=== PATIENT | male | born 1940 | race Caucasian/White ===

== ENCOUNTER → 2017-11-28 | Outpatient (CLI) | payer OTHER | END | disposition home or self-care (01) | LOC: LAB 12:39 | DX: I10 Essential (primary) hypertension (principal); D50.0 Iron deficiency anemia secondary to blood loss (chronic); N39.0 Urinary tract infection, site not specified; E03.8 Other specified hypothyroidism; E55.9 Vitamin D deficiency, unspecified ==

== ENCOUNTER 2017-12-19 11:07 | Outpatient (CLI) | payer OTHER | END 2017-12-19 11:08 | disposition home or self-care (01) | LOC: LAB 11:07 | DX: N18.3 Chronic kidney disease, stage 3 (moderate) (principal); E11.21 Type 2 diabetes mellitus with diabetic nephropathy; D63.1 Anemia in chronic kidney disease; N30.00 Acute cystitis without hematuria; E78.4 Other hyperlipidemia; E03.8 Other specified hypothyroidism ==

== ENCOUNTER 2018-02-27 12:11 | Outpatient (CLI) | payer OTHER | END 2018-02-27 12:24 | disposition home or self-care (01) | LOC: LAB 12:11 | DX: D50.0 Iron deficiency anemia secondary to blood loss (chronic) (principal); N39.0 Urinary tract infection, site not specified; I10 Essential (primary) hypertension; I12.9 Hypertensive chronic kidney disease with stage 1 through stage 4 chronic kidney disease, or unspecified chronic kidney disease; E78.2 Mixed hyperlipidemia; E03.8 Other specified hypothyroidism ==

== ENCOUNTER → 2018-03-13 | Outpatient (CLI) | payer OTHER | END | disposition home or self-care (01) | LOC: LAB 11:38 | DX: N18.3 Chronic kidney disease, stage 3 (moderate) (principal); E11.21 Type 2 diabetes mellitus with diabetic nephropathy; D63.1 Anemia in chronic kidney disease; N30.00 Acute cystitis without hematuria; E78.5 Hyperlipidemia, unspecified; E03.8 Other specified hypothyroidism ==

== ENCOUNTER 2018-04-18 11:16 | Outpatient (CLI) | payer OTHER | END 2018-04-18 11:20 | disposition home or self-care (01) | LOC: LAB 11:16 | DX: N18.3 Chronic kidney disease, stage 3 (moderate) (principal); E11.21 Type 2 diabetes mellitus with diabetic nephropathy; D63.1 Anemia in chronic kidney disease; N30.00 Acute cystitis without hematuria; E78.4 Other hyperlipidemia; E03.8 Other specified hypothyroidism ==

== ENCOUNTER 2018-06-20 11:37 | Outpatient (CLI) | payer OTHER | END 2018-06-20 11:45 | disposition home or self-care (01) | LOC: LAB 11:37 | DX: D50.0 Iron deficiency anemia secondary to blood loss (chronic) (principal); N39.0 Urinary tract infection, site not specified; I10 Essential (primary) hypertension; E78.2 Mixed hyperlipidemia; E03.8 Other specified hypothyroidism; E11.9 Type 2 diabetes mellitus without complications ==

== ENCOUNTER → 2018-08-01 11:42 | Outpatient (CLI) | payer OTHER | END | disposition home or self-care (01) | LOC: LAB 11:42 | DX: N18.3 Chronic kidney disease, stage 3 (moderate) (principal); E11.21 Type 2 diabetes mellitus with diabetic nephropathy; D63.1 Anemia in chronic kidney disease; N30.00 Acute cystitis without hematuria; E78.4 Other hyperlipidemia; E03.8 Other specified hypothyroidism ==

== ENCOUNTER → 2018-11-13 13:34 | Outpatient (CLI) | payer OTHER | END | disposition home or self-care (01) | LOC: LAB 13:34 | DX: N18.3 Chronic kidney disease, stage 3 (moderate) (principal); E11.21 Type 2 diabetes mellitus with diabetic nephropathy; D63.1 Anemia in chronic kidney disease; N30.00 Acute cystitis without hematuria; E78.49 Other hyperlipidemia; E03.8 Other specified hypothyroidism ==

== ENCOUNTER → 2019-02-12 | Outpatient (CLI) | payer OTHER | END | disposition home or self-care (01) | LOC: LAB 11:32 | DX: N18.3 Chronic kidney disease, stage 3 (moderate) (principal); E11.21 Type 2 diabetes mellitus with diabetic nephropathy; D63.1 Anemia in chronic kidney disease; N30.00 Acute cystitis without hematuria; E78.49 Other hyperlipidemia; E03.8 Other specified hypothyroidism ==

== ENCOUNTER → 2019-03-16 12:32 | Outpatient (CLI) | payer OTHER | END | disposition home or self-care (01) | LOC: LAB 12:32 | DX: E03.8 Other specified hypothyroidism (principal); E11.8 Type 2 diabetes mellitus with unspecified complications; E78.2 Mixed hyperlipidemia; D50.0 Iron deficiency anemia secondary to blood loss (chronic); N39.0 Urinary tract infection, site not specified; I10 Essential (primary) hypertension; N18.3 Chronic kidney disease, stage 3 (moderate) ==

== ENCOUNTER 2019-05-14 12:08 | Outpatient (CLI) | payer OTHER | END 2019-05-14 12:13 | disposition home or self-care (01) | LOC: LAB 12:08 | DX: E03.8 Other specified hypothyroidism (principal); N18.3 Chronic kidney disease, stage 3 (moderate); E11.21 Type 2 diabetes mellitus with diabetic nephropathy; D63.1 Anemia in chronic kidney disease; N30.00 Acute cystitis without hematuria; E78.49 Other hyperlipidemia ==

== ENCOUNTER 2019-07-31 12:24 | Outpatient (CLI) | payer OTHER | END 2019-07-31 12:35 | disposition home or self-care (01) | LOC: LAB 12:24 | DX: E78.2 Mixed hyperlipidemia (principal); E03.8 Other specified hypothyroidism; E11.8 Type 2 diabetes mellitus with unspecified complications; E55.9 Vitamin D deficiency, unspecified; D50.0 Iron deficiency anemia secondary to blood loss (chronic); N39.0 Urinary tract infection, site not specified; I10 Essential (primary) hypertension; K70.30 Alcoholic cirrhosis of liver without ascites; K70.0 Alcoholic fatty liver ==

== ENCOUNTER 2019-09-17 12:06 | Outpatient (CLI) | payer OTHER | END 2019-09-17 12:17 | disposition home or self-care (01) | LOC: LAB 12:06 | DX: N18.3 Chronic kidney disease, stage 3 (moderate) (principal); E11.21 Type 2 diabetes mellitus with diabetic nephropathy; D63.1 Anemia in chronic kidney disease; N30.00 Acute cystitis without hematuria; E78.49 Other hyperlipidemia; E03.8 Other specified hypothyroidism ==

== ENCOUNTER 2019-11-21 11:38 | Outpatient (CLI) | payer OTHER | END 2019-11-21 11:44 | disposition home or self-care (01) | LOC: LAB 11:38 | DX: D64.89 Other specified anemias (principal); N39.0 Urinary tract infection, site not specified; I10 Essential (primary) hypertension; E78.2 Mixed hyperlipidemia; E03.8 Other specified hypothyroidism; E11.8 Type 2 diabetes mellitus with unspecified complications ==

== ENCOUNTER → 2019-12-26 12:12 | Outpatient (CLI) | payer OTHER | END | disposition home or self-care (01) | LOC: LAB 12:12 | DX: E11.21 Type 2 diabetes mellitus with diabetic nephropathy (principal); D63.1 Anemia in chronic kidney disease; N30.00 Acute cystitis without hematuria; E03.8 Other specified hypothyroidism; N11.1 Chronic obstructive pyelonephritis ==

== ENCOUNTER 2020-02-27 12:23 | Outpatient (CLI) | payer OTHER | END 2020-02-27 12:34 | disposition home or self-care (01) | LOC: LAB 12:23 | DX: D64.89 Other specified anemias (principal); N39.0 Urinary tract infection, site not specified; I10 Essential (primary) hypertension; E78.2 Mixed hyperlipidemia; E11.8 Type 2 diabetes mellitus with unspecified complications; E03.8 Other specified hypothyroidism ==

== ENCOUNTER 2020-04-21 12:33 | Outpatient (CLI) | payer OTHER | END 2020-04-21 12:39 | disposition home or self-care (01) | LOC: LAB 12:33 | PROVIDERS: ATTEND Specialist/Technologist, Other Nephrology | DX: E11.21 Type 2 diabetes mellitus with diabetic nephropathy (principal); D63.1 Anemia in chronic kidney disease; E03.8 Other specified hypothyroidism; N30.00 Acute cystitis without hematuria ==

== ENCOUNTER → 2020-05-22 13:16 | Outpatient (CLI) | payer OTHER | END | disposition home or self-care (01) | LOC: LAB 13:16 | DX: D64.89 Other specified anemias (principal); N39.0 Urinary tract infection, site not specified; I10 Essential (primary) hypertension; E78.2 Mixed hyperlipidemia; E03.8 Other specified hypothyroidism; E11.8 Type 2 diabetes mellitus with unspecified complications; E55.9 Vitamin D deficiency, unspecified ==

== ENCOUNTER 2020-06-07 12:07 | Outpatient (CLI) | payer OTHER | END 2020-06-07 15:00 | disposition home or self-care (01) | LOC: RAD 12:07 | DX: J44.1 Chronic obstructive pulmonary disease with (acute) exacerbation (principal) ==

== ENCOUNTER 2020-08-21 11:11 | Outpatient (CLI) | payer OTHER | END 2020-08-21 11:20 | disposition home or self-care (01) | LOC: LAB 11:11 | DX: D64.89 Other specified anemias (principal); N39.0 Urinary tract infection, site not specified; E78.2 Mixed hyperlipidemia; E03.8 Other specified hypothyroidism; E04.2 Nontoxic multinodular goiter; E11.9 Type 2 diabetes mellitus without complications ==

== ENCOUNTER 2020-09-11 11:04 | Outpatient (CLI) | payer OTHER | END 2020-09-11 11:15 | disposition home or self-care (01) | LOC: LAB 11:04 | DX: E11.21 Type 2 diabetes mellitus with diabetic nephropathy (principal); E03.8 Other specified hypothyroidism; D63.1 Anemia in chronic kidney disease; N30.00 Acute cystitis without hematuria ==

== ENCOUNTER → 2021-01-12 11:12 | Outpatient (CLI) | payer OTHER | END | disposition home or self-care (01) | LOC: LAB 11:12 | PROVIDERS: ATTEND Specialist/Technologist, Other Nephrology | DX: E03.8 Other specified hypothyroidism (principal); E11.21 Type 2 diabetes mellitus with diabetic nephropathy; D63.1 Anemia in chronic kidney disease; N30.00 Acute cystitis without hematuria ==